=== PATIENT | male | born 1965 | race Caucasian/White ===

== ENCOUNTER 2016-11-20 12:00 | Day surgery (SDC) | payer OTHER ==
[~2016-11-20] VITALS: Ht 172.7 cm; Wt 90.7 kg
[~2016-11-20 12:00] MED LIST: ALPRAZOLAM1 MG PO; AMLODIPINE BESY10 MG PO; APRESOLINE50 MG PO; CALCIUM ACETAT667 MG PO; CARVEDILOL25 MG PO; CLOPIDOGREL75 MG PO; FUROSEMIDE20 MG PO; HYDROXYZINE HCL25 MG PO; ISOSORBIDE MONO60 MG PO; NOVOLIN,HU100 UNITS/ SC; PANTOPRAZOLE SO40 MG PO; PREDNISONE10 MG PO; PROVENTIL,2.5 MG/3 M IH; RENVELA800 MG PO; SENSIPAR30 MG PO; SERTRALINE HCL25 MG PO; SERTRALINE HCL50 MG PO; SYMBICORT60 INHALAT IH
[2016-11-20 12:41] VITALS: BP 188/105
[2016-11-20 13:19] LABS: POINT-OF-CARE METER ID UU14174212
[2016-11-20 13:24] LABS: HEMATOCRIT 38.5 % (38.0-50.0); MCHC 31.4 G/DL (30.0-36.0); MCV 82.6 FL (86-99); MEAN PLAT.VOLUME 9.8 uM^3 (9.0-12.4); PLATELET COUNT 242 K/uL (156-360); RBC DIS.WIDTH-CV 16.9 % (11.8-14.6); RBC DIS.WIDTH-SD 50.3 % (39-53); RED BLOOD COUNT 4.66 M/uL (4.00-5.50); WHITE BLOOD COUNT 13.2 K/uL (4.1-10.2)
[2016-11-20 14:00] LABS: ANION GAP 13 MEQ/L (2-14); CHLORIDE 104 MEQ/L (99-109); GFR ESTIMATE (CALCULATED) 12 mL/min/; GLUCOSE 189 mg/dL (70-99); SAMPLE HEMOLYSIS CHECK 0; SAMPLE ICTERIC CHECK 0; SAMPLE LIPEMIA CHECK 0; SODIUM 140 MEQ/L (136-147); UREA NITROGEN (BUN) 27 mg/dL (9-23)
[2016-11-20 15:10] LABS: POINT-OF-CARE METER ID UU13113675
[2016-11-20 17:28] VITALS: BP 174/87
== END 2016-11-20 17:28 | disposition home or self-care (01) ==
LOC: SDC 12:00
PROVIDERS: Surgery
DX: I12.0 Hypertensive chronic kidney disease with stage 5 chronic kidney disease or end stage renal disease (principal); E11.22 Type 2 diabetes mellitus with diabetic chronic kidney disease; N18.6 End stage renal disease; Z99.2 Dependence on renal dialysis; J44.9 Chronic obstructive pulmonary disease, unspecified; E78.00 Pure hypercholesterolemia, unspecified; I25.10 Atherosclerotic heart disease of native coronary artery without angina pectoris; I73.9 Peripheral vascular disease, unspecified; Z79.4 Long term (current) use of insulin; Z79.02 Long term (current) use of antithrombotics/antiplatelets; Z95.1 Presence of aortocoronary bypass graft
CPT/HCPCS: 80048; 82948; 85027; 94640; J0690; J1170; J1644; J2250; J2720; J3010

== ENCOUNTER 2017-01-24 05:16 | Day surgery (SDC) | payer OTHER ==
[~2017-01-24] VITALS: Ht 172.7 cm; Wt 90.7 kg
[~2017-01-24 05:16] MED LIST changes: +LO-DOSE ASPIRIN81 M1 PO
[2017-01-24 06:03] VITALS: BP 143/79
[2017-01-24 06:36] LABS: HEMATOCRIT 39.8 % (38.0-50.0); MCH 25.9 PG (29.0-34.0); MCHC 31.7 G/DL (30.0-36.0); MCV 81.9 FL (86-99); MEAN PLAT.VOLUME 10.2 uM^3 (9.0-12.4); PLATELET COUNT 242 K/uL (156-360); RBC DIS.WIDTH-CV 15.8 % (11.8-14.6); RBC DIS.WIDTH-SD 47.1 % (39-53); RED BLOOD COUNT 4.86 M/uL (4.00-5.50); WHITE BLOOD COUNT 13.1 K/uL (4.1-10.2)
[2017-01-24 06:41] LABS: ANION GAP 14 MEQ/L (2-14); CHLORIDE 104 MEQ/L (99-109); POTASSIUM 3.9 MEQ/L (3.7-5.4); SAMPLE HEMOLYSIS CHECK 0; SAMPLE ICTERIC CHECK 0; SAMPLE LIPEMIA CHECK 0; SODIUM 144 MEQ/L (136-147)
[2017-01-24 06:47] LABS: GFR ESTIMATE (CALCULATED) 11 mL/min/ (58.99-99999); GLUCOSE 108 mg/dL (70-99); UREA NITROGEN (BUN) 32 mg/dL (9-23)
[2017-01-24 09:28] LABS: POINT-OF-CARE METER ID UU13113675
[2017-01-24 09:50] VITALS: BP 154/86
[2017-01-24 10:35] VITALS: BP 151/82
== END 2017-01-24 10:35 | disposition home or self-care (01) ==
LOC: SDC 05:16
PROVIDERS: Surgery
DX: T82.590A Other mechanical complication of surgically created arteriovenous fistula, initial encounter (principal); I12.0 Hypertensive chronic kidney disease with stage 5 chronic kidney disease or end stage renal disease; E11.22 Type 2 diabetes mellitus with diabetic chronic kidney disease; F17.200 Nicotine dependence, unspecified, uncomplicated; N18.6 End stage renal disease; Z99.2 Dependence on renal dialysis; Z79.4 Long term (current) use of insulin; E78.00 Pure hypercholesterolemia, unspecified; I25.10 Atherosclerotic heart disease of native coronary artery without angina pectoris; J44.9 Chronic obstructive pulmonary disease, unspecified; Z95.1 Presence of aortocoronary bypass graft; Z95.5 Presence of coronary angioplasty implant and graft
CPT/HCPCS: 80048; 82948; 85027; 94640; J0690; J1644; J2250; J2720; J3010

== ENCOUNTER → 2017-07-20 | Outpatient (CLI) | payer OTHER | END | disposition home or self-care (01) | LOC: AMB 09:30 | PROC: 05PY03Z Removal of Infusion Device from Upper Vein, Open Approach (ICD-10-PCS; principal; 2017-07-20) | DX: Z45.2 Encounter for adjustment and management of vascular access device (principal); N18.6 End stage renal disease | CPT/HCPCS: 94640 ==